=== PATIENT | female | born 1950 | race Two or more races ===

== ENCOUNTER 2020-07-28 18:26 | Inpatient (IN) | payer MEDICARE, OTHER ==
[~2020-07-28] VITALS: Ht 160 cm; Wt 46.7 kg
[2020-07-28] MEDS ORDERED: ALBU2.5V13 NEB (18:48)
[2020-07-28] MEDS ORDERED: PRED20TA PO (18:52)
[2020-07-28] MEDS ORDERED: IPRA12.9 IH (18:52)
[2020-07-28] MEDS ORDERED: IV NORMAL SALINE 1000 ML BAG IV ONE (19:00)
[2020-07-28] MEDS ORDERED: ALBUTEROL SULFATE 2.5 MG/3 ML NEBU NEB ONE ×2 (19:00→20:45)
[2020-07-28] MEDS ORDERED: IPRATROPIUM BROMIDE 0.5 MG/2.5 ML NEBU NEB ONE ×2 (19:00→21:30)
--- NOTE | 2020-07-28 19:15 | NUR ---
Received patient a/o x4, denies chest pain, sob with exertion on O2 3L via NC. Placed on monitor worker.
[2020-07-28] MEDS ORDERED: IPRATROPIUM BROMIDE 0.5 MG/2.5 ML NEBU ONE (19:19)
[2020-07-28] MEDS ORDERED: ALBUTEROL SULFATE 2.5 MG/3 ML NEBU ONE ×2 (19:20→20:46)
--- NOTE | 2020-07-28 19:20 | NUR ---
Patient receiving HHN treatment at this time.
[2020-07-28 19:33] LABS: BASOPHILS % (AUTO) 0.4 % (0.0-2.0); EOSINOPHILS % (AUTO) 0.4 % (0.0-7.0); HEMATOCRIT 42.1 % (31.2-41.9); HEMOGLOBIN 13.5 g/dL (10.9-14.3); LYMPHOCYTES # (AUTO) 0.4 K/uL (20.0-40.0); LYMPHOCYTES % (AUTO) 3.3 % (20.5-51.5); MEAN CORPUSCULAR HEMOGLOBIN 27.6 uug (24.7-32.8); MEAN CORPUSCULAR HGB CONC 32 g/dL (32.3-35.6); MEAN CORPUSCULAR VOLUME 86.4 fL (75.5-95.3); MONOCYTES # (AUTO) 0.1 K/uL (2.0-10.0); MONOCYTES % (AUTO) 0.7 % (0.0-11.0); NEUTROPHILS # (AUTO) 10.2 K/uL (1.8-8.9); NEUTROPHILS % (AUTO) 95.2 % (38.5-71.5); PLATELET COUNT (AUTO) 313 K/uL (179-408); RED BLOOD CELL COUNT(AUTO) 4.88 MIL/uL (3.63-4.92); WHITE BLOOD COUNT (AUTO) 10.7 K/uL (3.8-11.8)
[2020-07-28 19:46] LABS: CREATININE 0.7 mg/dL (0.6-1.3); POTASSIUM 4.5 mmol/L (3.5-5.1)
[2020-07-28] MEDS ORDERED: ITRA100C5 PO (19:55)
[2020-07-28] MEDS ORDERED: AZIT250T PO (19:55)
[2020-07-28 20:01] LABS: BILIRUBIN,DIRECT 0.1 mg/dL (0.0-0.2); BILIRUBIN,TOTAL 0.3 mg/dL (0.2-1.0); TOTAL PROTEIN, SERUM 7.3 g/dL (6.4-8.2)
--- NOTE | 2020-07-28 20:40 | NUR ---
Patient ambulated to the bathroom and c/o sob with exertion.
[2020-07-28] MEDS ORDERED: ALPR0.255 PO (20:42)
--- NOTE | 2020-07-28 20:45 | NUR ---
RT at bedside for HHN treatment.
--- NOTE | 2020-07-28 21:01 | NUR ---
COVID SWAB COLLECTED, DROPPED OFF AT LAB.
[2020-07-28] MEDS ORDERED: HYDROCODONE/APAP 5-325MG TABLET PO PRN (21:30)
[2020-07-28] MEDS ORDERED: MAGNESIUM HYDROXIDE 30 ML LIQUID UDC PO PRN (21:30)
[2020-07-28] MEDS ORDERED: Z GUARD REMEDY PASTE 57 GM TUBE TOP PRN (21:30)
[2020-07-28] MEDS ORDERED: ONDANSETRON 4 MG/2 ML VIAL IV PRN (21:30)
[2020-07-28] MEDS ORDERED: AZITHROMYCIN 250 MG TABLET PO ONE (21:30)
--- NOTE | 2020-07-28 21:57 | NUR ---
Patient refused dose of zithromax, takes zithromax every wednesday and .
--- NOTE | 2020-07-28 22:30 | NUR ---
Dr. Arrieta at [facility].
--- NOTE | 2020-07-29 00:40 | NUR ---
Pt. admitted to TELE , under care of Dr. NEVAREZ Belongs List completed.
[2020-07-29 01:30] VITALS: BP 130/74
--- NOTE | 2020-07-29 01:35 | NUR ---
Received patient via gurney, Transported by Robert MORENO. Pt is AXOx4. Complaints of SOB on 3 L NC saturating at 97%. Denies any pain at this time. Admitted for COPD exacerbation. V/S stable on room air. Afebrile. Sinus rhythm on monitor.20G Right Forearm IV is intact. Skin is intact. Patient belongings checked. Safety measures in place. Bed low and locked in position. Call light within reach. Will continue with the plan of care.
[2020-07-29] MEDS: ACETAMINOPHEN 325 MG TABLET PO PRN ×2 (02:28→14:01)
--- NOTE | 2020-07-29 02:30 | NUR ---
Patient is very anxious, complaints of pain in her wrist, administered Tylenol. Patient request xanax, notified Dr. Gonzalez for one time order for tonight, no new orders.
[2020-07-29] MEDS: ALBUTEROL SULFATE 2.5 MG/3 ML NEBU NEB SCH ×6 (03:34→23:59)
[2020-07-29 04:55] VITALS: BP 122/68
[2020-07-29] MEDS ORDERED: ITRACONAZOLE 200 MG PO SCH (09:00)
[2020-07-29 09:01] LABS: BASOPHILS % (AUTO) 0.1 % (0.0-2.0); EOSINOPHILS % (AUTO) 0.1 % (0.0-7.0); HEMATOCRIT 39.5 % (31.2-41.9); HEMOGLOBIN 12.7 g/dL (10.9-14.3); LYMPHOCYTES % (AUTO) 12.5 % (20.5-51.5); MEAN CORPUSCULAR HGB CONC 32 g/dL (32.3-35.6); MEAN CORPUSCULAR VOLUME 87.3 fL (75.5-95.3); MONOCYTES # (AUTO) 0.4 K/uL (2.0-10.0); MONOCYTES % (AUTO) 5.3 % (0.0-11.0); NEUTROPHILS # (AUTO) 6.7 K/uL (1.8-8.9); PLATELET COUNT (AUTO) 297 K/uL (179-408); RED BLOOD CELL COUNT(AUTO) 4.52 MIL/uL (3.63-4.92); WHITE BLOOD COUNT (AUTO) 8.2 K/uL (3.8-11.8)
[2020-07-29 09:08] LABS: CREATININE 0.7 mg/dL (0.6-1.3); MAGNESIUM 2.1 mg/dL (1.8-2.4); PHOSPHOROUS 2.5 mg/dL (2.5-4.9); POTASSIUM 4.1 mmol/L (3.5-5.1)
[2020-07-29] MEDS: methylPREDNISolone SOD SUCC 40 MG/ML VIAL IV SCH (09:09)
[2020-07-29] MEDS: ALPRAZOLAM 0.25 MG TABLET PO SCH ×3 (09:09→18:00)
[2020-07-29 12:00] VITALS: BP 138/80
--- NOTE | 2020-07-29 16:05 | NUR ---
Received an order from Dr. Arrieta to continue patient's own home medications and to shift itraconazole to [facility] to dose.
[2020-07-29 16:06] VITALS: BP 110/76
[2020-07-29] MEDS: CHOLECALCIFEROL 1,000 UNIT TABLET PO SCH (17:59)
[2020-07-29] MEDS: ZINC SULFATE 220 MG CAPSULE PO SCH (17:59)
[2020-07-29] MEDS: OMEGA-3 FATTY ACIDS/FISH OIL CAPSULE PO SCH (18:00)
[2020-07-29] MEDS: GABAPENTIN 100 MG CAPSULE PO SCH (18:00)
[2020-07-29] MEDS: VITAMIN E 400 UNITS CAPSULE PO SCH (18:00)
[2020-07-29] MEDS: PANTOPRAZOLE SODIUM 40 MG TABLET.DR PO SCH (18:04)
[2020-07-29] MEDS: FLUCONAZOLE 200 MG TABLET PO SCH (18:12)
--- NOTE | 2020-07-29 18:45 | NUR ---
Per pharmacy, need to monitor for QTC interval with the administration of diflucan, azithromycin and plaquenil. QTC interval at this time is 394 and per pharmacy its ok to administer medication and continue to monitor. Will endorse accordingly to overnight stocker nurse.
[2020-07-29] MEDS: HYDROXYCHLOROQUINE SULFATE 200 MG TABLET PO SCH (18:48)
[2020-07-29 20:00] VITALS: BP 148/73
[2020-07-29] MEDS: ATORVASTATIN 20 MG TABLET PO SCH (20:23)
--- NOTE | 2020-07-29 21:05 | NUR ---
Received patient calm and cooperative sitting in bed watching TV. Pt is AXOx4. No Complaints of SOB on 3 L NC saturating at 98%. Denies any pain at this time. V/S stable on room air. Afebrile. Sinus rhythm on monitor. 20G Right Forearm IV is intact. Safety measures in place. Bed low and locked in position. Call light within reach. Will continue with the plan of care.
--- NOTE | 2020-07-29 21:20 | NUR ---
Per pharmacy, need to monitor for QTC interval with the administration of diflucan, azithromycin and plaquenil. QTC interval at this time is 460 and per pharmacy its ok to administer medication and continue to monitor. Will continue to monitor.
[2020-07-29] MEDS: AZITHROMYCIN 250 MG TABLET PO SCH (21:35)
[2020-07-29] MEDS: GUAIFENESIN/DEXTROMETHORPHAN 5 ML UDC PO PRN (22:19)
--- NOTE | 2020-07-29 22:37 | NUR ---
Pt requested cough supplement. computer system validation specialist made aware. Received an order from Dr. Amina FONSECA Q6H PRN. Administered medication to patient. Patient is comfortable. All needs attended to promptly . Will continue to monitor.
[2020-07-30] VITALS: BP 126/75
[2020-07-30] MEDS: ALBUTEROL SULFATE 2.5 MG/3 ML NEBU NEB SCH ×5 (03:46→21:37)
[2020-07-30 04:00] VITALS: BP 128/76
[2020-07-30 06:54] LABS: BASOPHILS % (AUTO) 0.1 % (0.0-2.0); EOSINOPHILS % (AUTO) 0.3 % (0.0-7.0); HEMATOCRIT 37.3 % (31.2-41.9); HEMOGLOBIN 12.2 g/dL (10.9-14.3); LYMPHOCYTES # (AUTO) 1.8 K/uL (20.0-40.0); LYMPHOCYTES % (AUTO) 17.2 % (20.5-51.5); MEAN CORPUSCULAR HEMOGLOBIN 28.5 uug (24.7-32.8); MEAN CORPUSCULAR HGB CONC 33 g/dL (32.3-35.6); MONOCYTES # (AUTO) 0.7 K/uL (2.0-10.0); MONOCYTES % (AUTO) 6.7 % (0.0-11.0); NEUTROPHILS # (AUTO) 7.8 K/uL (1.8-8.9); NEUTROPHILS % (AUTO) 75.7 % (38.5-71.5); PLATELET COUNT (AUTO) 299 K/uL (179-408); RED BLOOD CELL COUNT(AUTO) 4.29 MIL/uL (3.63-4.92); WHITE BLOOD COUNT (AUTO) 10.3 K/uL (3.8-11.8)
[2020-07-30] MEDS: PANTOPRAZOLE SODIUM 40 MG TABLET.DR PO SCH (06:55)
[2020-07-30 07:00] LABS: POTASSIUM 3.9 mmol/L (3.5-5.1)
[2020-07-30] MEDS: OMEGA-3 FATTY ACIDS/FISH OIL CAPSULE PO SCH (09:04)
[2020-07-30] MEDS: VITAMIN E 400 UNITS CAPSULE PO SCH (09:04)
[2020-07-30] MEDS: GABAPENTIN 100 MG CAPSULE PO SCH ×3 (09:04→15:52)
[2020-07-30] MEDS: ALPRAZOLAM 0.25 MG TABLET PO SCH ×3 (09:04→15:52)
[2020-07-30] MEDS: ZINC SULFATE 220 MG CAPSULE PO SCH (09:05)
[2020-07-30] MEDS: CHOLECALCIFEROL 1,000 UNIT TABLET PO SCH (09:06)
[2020-07-30] MEDS: methylPREDNISolone SOD SUCC 40 MG/ML VIAL IV SCH (09:07)
[2020-07-30] MEDS: GUAIFENESIN/DEXTROMETHORPHAN 5 ML UDC PO PRN (09:21)
[2020-07-30] MEDS: HYDROXYCHLOROQUINE SULFATE 200 MG TABLET PO SCH (09:55)
[2020-07-30] MEDS: AZITHROMYCIN 250 MG TABLET PO SCH (09:55)
--- NOTE | 2020-07-30 09:55 | NUR ---
Per pharmacy, need to monitor for QTC interval with the administration of diflucan, azithromycin and plaquenil. QTC interval at this time is 443 and per pharmacy its ok to administer medication and continue to monitor. Will continue to monitor.
[2020-07-30] MEDS: ACETAMINOPHEN 325 MG TABLET PO PRN (10:53)
--- NOTE | 2020-07-30 11:00 | NUR ---
Received pt from prior nurse. Pt alert and oriented x 4. Noted wheezing jess upper lungs. PT ambulated in hallway. Post ambulation o2 sat 93% on 3 liters. Incentive spirometer given to pt. Instructed pt on proper use and technique. Pt able to return demonstrate proper use on IS. Encourged pt to use IS x 10 reps q1 hr WA. PT is in no acute distress.
[2020-07-30 11:57] VITALS: BP 125/81
[2020-07-30] MEDS ORDERED: HYDROCODONE/APAP 5-325MG TABLET PO PRN (14:30)
[2020-07-30] MEDS ORDERED: GUAIFENESIN/CODEINE 5 ML LIQUID UDC PO PRN (14:45)
--- NOTE | 2020-07-30 14:45 | NUR ---
Dr caban saw pt notified pt was wheezing after ambulating in hallway. Pt c/o pain right side of her chest. New order for Robitussin with codeine and [place]. Pt states that she has taken medications before and no severe reaction noted notified pharmacy [facility]. CXR ordered in AM. Call light is within reach.
[2020-07-30] MEDS: FLUCONAZOLE 200 MG TABLET PO SCH (15:53)
[2020-07-30 15:58] VITALS: BP 118/70
--- NOTE | 2020-07-30 16:26 | NUR ---
Reminded pt to have someone bring home Meds SAVELLA to the hospital. Notified pt that savella medication is not available in our pharmcacy. Pt states she will try to have someone bring the medication.
--- NOTE | 2020-07-30 18:12 | NUR ---
Pt is in no acute distress. Pt tolerated ambulation around hallway. Post ambulation 02 sat 93%. Call light is within reach.
[2020-07-30 19:54] VITALS: BP 127/74
[2020-07-30] MEDS: ATORVASTATIN 20 MG TABLET PO SCH (20:38)
[2020-07-30 23:49] VITALS: BP 118/69
[2020-07-31] MEDS: ALBUTEROL SULFATE 2.5 MG/3 ML NEBU NEB SCH ×6 (00:08→19:15)
[2020-07-31 04:43] VITALS: BP 119/75
[2020-07-31] MEDS: PANTOPRAZOLE SODIUM 40 MG TABLET.DR PO SCH (06:05)
--- NOTE | 2020-07-31 06:41 | NUR ---
Pt rested well in between care; no acute distress; needs attended; continue to monitor; continue plan of care.
--- NOTE | 2020-07-31 08:00 | NUR ---
awake alert and pleasant, able to verbalize needs without further sob in bed. continue current meds and antibiotics
[2020-07-31] MEDS: methylPREDNISolone SOD SUCC 40 MG/ML VIAL IV SCH (08:22)
[2020-07-31] MEDS: OMEGA-3 FATTY ACIDS/FISH OIL CAPSULE PO SCH (08:22)
[2020-07-31] MEDS: HYDROXYCHLOROQUINE SULFATE 200 MG TABLET PO SCH (08:22)
[2020-07-31] MEDS: VITAMIN E 400 UNITS CAPSULE PO SCH (08:22)
[2020-07-31] MEDS: ALPRAZOLAM 0.25 MG TABLET PO SCH ×3 (08:23→16:37)
[2020-07-31] MEDS: GABAPENTIN 100 MG CAPSULE PO SCH ×3 (08:23→16:37)
[2020-07-31] MEDS: ZINC SULFATE 220 MG CAPSULE PO SCH (08:23)
[2020-07-31] MEDS: CHOLECALCIFEROL 1,000 UNIT TABLET PO SCH (08:23)
[2020-07-31] MEDS: AZITHROMYCIN 250 MG TABLET PO SCH (08:23)
[2020-07-31] MEDS ORDERED: ENOXAPARIN SODIUM 40 MG/0.4 ML DISP.SYRIN SQ SCH (11:45)
[2020-07-31 11:55] VITALS: BP 116/70
--- NOTE | 2020-07-31 12:00 | NUR ---
SEEN BY DR ASHLEY BARAHONA [facility]- SEE NOTES
[2020-07-31 16:14] VITALS: BP 126/63
--- NOTE | 2020-07-31 17:50 | NUR ---
SEEN BY DR PARHAM DISCUSSED PLAN OF CARE TO GO TO ARU. CONTINUE PO ANTIBIOTIC AND STEROIDS, NO SS OF ACUTE DISTRESS. SR ON MONITOR
[2020-07-31] MEDS ORDERED: HYDR-3972 PO (18:03)
[2020-07-31] MEDS ORDERED: CHOL10002 PO (18:03)
[2020-07-31] MEDS ORDERED: PRED-170 PO (18:03)
[2020-07-31] MEDS ORDERED: PANT40TA2 PO (18:03)
[2020-07-31] MEDS ORDERED: GUAI5SYR4 PO (18:03)
[2020-07-31] MEDS ORDERED: OMEG1CAP PO (18:03)
[2020-07-31] MEDS ORDERED: ALBU2.5V7 NEB (18:03)
[2020-07-31] MEDS ORDERED: ENOX40DI SQ (18:03)
[2020-07-31] MEDS ORDERED: GABA-532 PO (18:03)
[2020-07-31] MEDS ORDERED: ZINC1CAP2 PO (18:03)
[2020-07-31] MEDS ORDERED: HYDR200T4 PO (18:03)
[2020-07-31] MEDS ORDERED: ACET325T53 PO (18:03)
[2020-07-31] MEDS ORDERED: MAGN400O6 PO (18:03)
[2020-07-31] MEDS ORDERED: Vitamin E PO (18:03)
[2020-07-31 20:00] VITALS: BP 126/63
[2020-08-01] MEDS ORDERED: predniSONE 50 MG TABLET PO SCH (09:00)
== END 2020-08-01 | DRG 202 ==
LOC: ER 18:29 → TELE3 07-29 01:26 → MEDSURG3 07-31 21:01
PROVIDERS: ADMIT Family Medicine; ATTEND Internal Medicine
DX: J20.9 Acute bronchitis, unspecified (principal); J44.1 Chronic obstructive pulmonary disease with (acute) exacerbation; J96.11 Chronic respiratory failure with hypoxia; D68.69 Other thrombophilia; J44.0 Chronic obstructive pulmonary disease with (acute) lower respiratory infection; F41.9 Anxiety disorder, unspecified; I10 Essential (primary) hypertension; Z87.891 Personal history of nicotine dependence; M35.00 Sjogren syndrome, unspecified; Z86.13 Personal history of malaria; R62.7 Adult failure to thrive; R73.9 Hyperglycemia, unspecified
CPT/HCPCS: 36415; 70030-TC; 71045; 83735; 84100; 84443; 85025; 93005; 94640; G0378; J1650; J2920; J3590; J7512; Q0144

== ENCOUNTER 2020-07-31 15:11 | Inpatient (IN) | payer MEDICARE, OTHER ==
[~2020-07-31] VITALS: Ht 158.8 cm; Wt 43.8 kg
[~2020-07-31 15:11] MED LIST: ALBU2.5V13 NEB; ALPR0.255 PO; AZIT250T PO; IPRA12.9 IH; ITRA100C5 PO; PRED20TA PO
[2020-07-31] MEDS ORDERED: GABA-532 PO (18:03)
[2020-07-31] MEDS ORDERED: CHOL10002 PO (18:03)
[2020-07-31] MEDS ORDERED: ENOX40DI SQ (18:03)
[2020-07-31] MEDS ORDERED: ACET325T53 PO (18:03)
[2020-07-31] MEDS ORDERED: GUAI5SYR4 PO (18:03)
[2020-07-31] MEDS ORDERED: PANT40TA2 PO (18:03)
[2020-07-31] MEDS ORDERED: ALBU2.5V7 NEB (18:03)
[2020-07-31] MEDS ORDERED: OMEG1CAP PO (18:03)
[2020-07-31] MEDS ORDERED: Vitamin E PO (18:03)
[2020-07-31] MEDS ORDERED: ZINC1CAP2 PO (18:03)
[2020-07-31] MEDS ORDERED: HYDR-3972 PO (18:03)
[2020-07-31] MEDS ORDERED: PRED-170 PO (18:03)
[2020-07-31] MEDS ORDERED: MAGN400O6 PO (18:03)
[2020-07-31] MEDS ORDERED: HYDR200T4 PO (18:03)
--- NOTE | 2020-07-31 19:00 | NUR ---
Received admission report from JOSH Francois
--- NOTE | 2020-07-31 19:05 | NUR ---
Awake, alert and oriented x 4. Able to verbalized needs/concern clearly. Denied any pain/discomforts at this time. Safety measures and fall prevention initiated.
[2020-07-31] MEDS ORDERED: MAGNESIUM HYDROXIDE 30 ML LIQUID UDC PO PRN (19:45)
[2020-07-31] MEDS ORDERED: Z GUARD REMEDY PASTE 57 GM TUBE TOP PRN (19:45)
[2020-07-31] MEDS ORDERED: ACETAMINOPHEN 325 MG TABLET PO PRN (19:45)
[2020-07-31] MEDS ORDERED: HYDROCODONE/APAP 5-325MG TABLET PO PRN (19:45)
[2020-07-31] MEDS ORDERED: GUAIFENESIN/CODEINE 5 ML LIQUID UDC PO PRN (19:45)
--- NOTE | 2020-07-31 19:57 | NUR ---
Routine admission care done. Plan of care initiated.
[2020-07-31 20:00] VITALS: BP 124/72
[2020-07-31] MEDS ORDERED: GABAPENTIN 100 MG CAPSULE PO SCH (20:00)
[2020-07-31] MEDS: ALBUTEROL SULFATE 2.5 MG/3 ML NEBU NEB SCH (23:22)
[2020-08-01] MEDS: ALBUTEROL SULFATE 2.5 MG/3 ML NEBU NEB SCH ×3 (03:12→11:30)
--- NOTE | 2020-08-01 06:13 | NUR ---
Shift End Report: Vital signs stable. No complaint presented all night but she kept reminding nurse that she will go home today because she has an outpatient appointment today. Charge nurse made aware otherwise no new significant event reported.
[2020-08-01] MEDS ORDERED: PANTOPRAZOLE SODIUM 40 MG TABLET.DR PO SCH (07:00)
[2020-08-01 07:30] VITALS: BP 145/88
[2020-08-01] MEDS ORDERED: HYDROXYCHLOROQUINE SULFATE 200 MG TABLET PO SCH (09:00)
[2020-08-01] MEDS ORDERED: ENOXAPARIN SODIUM 40 MG/0.4 ML DISP.SYRIN SQ SCH (09:00)
[2020-08-01] MEDS ORDERED: CHOLECALCIFEROL 1,000 UNIT TABLET PO SCH (09:00)
[2020-08-01] MEDS ORDERED: OMEGA-3 FATTY ACIDS/FISH OIL CAPSULE PO SCH (09:00)
[2020-08-01] MEDS ORDERED: predniSONE 5 MG TABLET PO SCH (09:00)
[2020-08-01] MEDS ORDERED: ZINC SULFATE 220 MG CAPSULE PO SCH (09:00)
[2020-08-01] MEDS ORDERED: VITAMIN E 400 UNITS CAPSULE PO SCH (09:00)
[2020-08-01] MEDS ORDERED: GABAPENTIN 100 MG CAPSULE PO SCH (09:00)
[2020-08-01] MEDS ORDERED: ALPRAZOLAM 0.25 MG TABLET PO SCH (09:00)
--- NOTE | 2020-08-01 12:36 | NUR ---
LEFT AMA STATES SHE WANTS TO GET TO HER MD APPT SCHEDULED FOR TODAY AND SHE DOES NOT WANT TO STAY IN THE HOSPITAL FOR THERAPY. DOES NOT TO SIGN AMA FORM.
== END 2020-08-01 11:20 | disposition left against medical advice (07) | DRG 191 ==
PROVIDERS: ADMIT Internal Medicine; ATTEND Physical Medicine & Rehabilitation Pain Medicine
DX: J44.1 Chronic obstructive pulmonary disease with (acute) exacerbation (principal); D68.59 Other primary thrombophilia; J96.11 Chronic respiratory failure with hypoxia; F41.9 Anxiety disorder, unspecified; I10 Essential (primary) hypertension; J20.9 Acute bronchitis, unspecified; J44.0 Chronic obstructive pulmonary disease with (acute) lower respiratory infection; R62.7 Adult failure to thrive; Z87.891 Personal history of nicotine dependence; R53.1 Weakness; Z88.8 Allergy status to other drugs, medicaments and biological substances
CPT/HCPCS: 94640; J1650